=== PATIENT | female | born 1945 | race African-American/Black ===

== ENCOUNTER 2016-10-22 15:46 | Emergency (ER) | payer MEDICARE, MEDICAID ==
[~2016-10-22] VITALS: Ht 165.1 cm; Wt 90.0 kg
[2016-10-22 15:46] VITALS: BP 130/76; PULSE 86; RESP 20; TEMP 97.5; O2SAT 96
[~2016-10-22 15:46] MED LIST: 1-ME1LIQ PO; ALDA2525 PO; ATOR20TA PO; HYDR-2768 PO; LISI-593 PO; LISI40TA PO; SPIR25TA PO; VITATAB25 PO
--- NOTE | 2016-10-22 16:06 | PD ---
HPI Chief Complaint: Complaint Time Seen by Provider: 16:04 Travel History International Travel<30 days: No Contact w/Intl Traveler<30days: No Traveled to known affect area: No History of Present Illness HPI 71-year-old female with PMH of DM, HTN presents to the ED for evaluation of 1 month history of pressure in the vagina. Patient states that she feels as if her "insides are falling out." She denies fever, chills, abdominal pain, nausea , vomiting, dysuria, vaginal discharge, vaginal odor. States she is otherwise been feeling well. Endorses compliance with her daily medications. NKDA. PFSH Past Medical History Cardiovascular Problems: Yes (HIGH BP) Congestive Heart Failure: Yes Diminished Hearing: No Hypertension: Yes ?: Not Past Surgical History Genitourinary Surgery: Yes (EXPLORATORY) Social History Alcohol Use: No Tobacco Use: Yes (3PPD) Substance Use: Yes (CANNABIS) Allergies-Medications (Allergen,Severity, Reaction): Coded Allergies: No Known Allergies (Unverified , 10/22/16) Reported Meds & Prescriptions Reported Meds & Active Scripts Active Reported Spironolactone 25 Mg Tab 25 Mg PO DAILY Hydrochlorothiazide 25 Mg Tab 25 Mg PO DAILY Calcium 600 with Vitamin D (Calcium Carbonate-Cholecalciferol) 600-400 mg-Unit Tab 1 Tab PO DAILY Atorvastatin (Atorvastatin Calcium) 20 Mg Tab 20 Mg PO HS Lisinopril 40 Mg Tab 40 Mg PO DAILY Review of Systems Except as stated in HPI: all other systems reviewed are Neg Physical Exam Narrative GENERAL: Well-nourished, well-developed nontoxic-appearing elderly black female in no acute distress. SKIN: Warm and dry. HEAD: Normocephalic. EYES: No scleral icterus. No injection or drainage. NECK: Supple, trachea midline. No JVD or lymphadenopathy. CARDIOVASCULAR: Regular rate and rhythm without murmurs, gallops, or rubs. RESPIRATORY: Breath sounds clear and equal bilaterally. No accessory muscle use. GASTROINTESTINAL: Abdomen soft, non-tender, nondistended. No suprapubic tenderness. Active bowel sounds. GENITOURINARY: Normal external genitalia without lesions or erythema. Vaginal vault without blood. There is a scant amount of thin white drainage in the vaginal vault. The cervical os is approximately 2 cm from the vaginal introitus. Digital exam reveals atrophied uterus approximately 4-5 cm.Cervical os was closed without drainage. MUSCULOSKELETAL: No cyanosis, or edema. The patient is ambulatory and moves extremities spontaneously. BACK: Nontender without obvious deformity. No CVA tenderness. Data Data Last Documented VS Vital Signs Date Time Temp Pulse Resp B/P Pulse Ox O2 Delivery O2 Flow Rate FiO2 10/22/16 16:08 16 10/22/16 16:08 16 122/66 100 Room Air 10/22/16 15:46 97.5 Orders Gc And Chlamydia Pcr (10/22/16 16:18) Wet Prep Profile (10/22/16 16:18) Urinalysis - C+S If Indicated (10/22/16 16:18) Labs Laboratory Tests Test 10/22/16 10/22/16 16:15 16:20 Clue Cells (Wet Prep) NONE SEEN Vaginal Trichomonas (Wet Prep) NONE SEEN Vaginal Yeast (Wet Prep) NONE SEEN Urine Color YELLOW Urine Turbidity CLEAR Urine pH 5.5 Urine Specific [place] 1.016 Urine Protein TRACE mg/dL Urine Glucose (UA) NEG mg/dL Urine Ketones NEG mg/dL Urine Occult Blood NEG Urine Nitrite NEG Urine Bilirubin NEG Urine Urobilinogen LESS THAN 2.0 MG/DL Urine Leukocyte Esterase SMALL Urine RBC 1 /hpf Urine WBC 2 /hpf Urine Squamous Epithelial 3 /hpf Cells Urine Bacteria RARE /hpf Urine Hyaline Casts 6 /lpf Urine Mucus FEW /lpf Microscopic Urinalysis Comment CULT NOT INDICATED MDM Medical Decision Making Medical Screen Exam Complete: Yes Emergency Medical Condition: Yes Differential Diagnosis Uterine prolapse versus cystocele versus vaginal foreign body versus other Narrative Course 71-year-old female with PMH of DM, HTN presents to the ED for evaluation of 1 month history of pressure in the vagina. Patient states that she feels as if her "insides are falling out." She denies fever, chills, abdominal pain, nausea , vomiting, dysuria, vaginal discharge, vaginal odor. Vitals reviewed. Physical exam reveals a nontoxic appearing black female no acute distress. Abdominal exam is benign. Pelvic exam reveals prolapsed uterus. The cervical os is proximal by 2 cm into the vaginal introitus. The uterus is atrophied, ~5 cm. There is a small amount of thin white discharge in the vaginal vault. UA: No culture indicated Wet prep: Negative GC chlamydia: Pending Patient is low risk for GC and chlamydia. I'll defer empiric treatment pending lab results. I discussed uterine prolapse with the patient. I informed her that this is not an emergency condition and she can follow up with her primary care provider or colorectal surgeon. She indicated understanding of instructions. She is amenable to plan of care. She is stable and discharged home. 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 Follow-up with the colorectal surgeon as discussed. Return to the ED for any urgent or emergent medical condition. Disposition: 01 DISCHARGE HOME Condition: Stable Fani Boswell Oct 22, 2016 16:06
[2016-10-22] MEDS ORDERED: LISI40TA PO (16:07)
[2016-10-22] MEDS ORDERED: ATOR20TA15 PO (16:07)
[2016-10-22] MEDS ORDERED: CALC1TAB87 PO (16:07)
[2016-10-22 16:08] VITALS: BP 122/66; PULSE 78; RESP 16; O2SAT 100
[2016-10-22] MEDS ORDERED: SPIR25TA PO (16:08)
[2016-10-22] MEDS ORDERED: HYDR25TA5 PO (16:08)
[2016-10-22 17:26] LABS: BACTERIA, URINE RARE /hpf; BLOOD, URINE NEG (NEG); COMMENT (UR) CULT NOT INDICATED; CULTURE IF INDICATED CULT NOT INDICATED; GLUCOSE,URINE NEG (NEG); HYALINE CAST, URINE 6 /lpf (RARE); KETONE, URINE NEG (NEG); MUCUS URINE FEW /lpf (OCC); NITRITE,URINE NEG (NEG); PH, URINE 5.5 (5.0-8.5); SQUAMOUS EPITHELIAL CELL URINE 3 /hpf (0-5); URINE COLOR YELLOW (YELLW/STRAW)
[2016-10-22 22:49] LABS: CHLAMYDIA PCR NOT DETECTED (NOT DETECT); NEISSERIA PCR NOT DETECTED (NOT DETECT)
== END 2016-10-22 17:51 | disposition home or self-care (01) ==
LOC: NEPA 15:46
DX: N81.4 Uterovaginal prolapse, unspecified (principal); I10 Essential (primary) hypertension; E11.9 Type 2 diabetes mellitus without complications; F17.210 Nicotine dependence, cigarettes, uncomplicated; F12.10 Cannabis abuse, uncomplicated
CPT/HCPCS: 81001; 87210; 87491; 87591; 99283

== ENCOUNTER 2016-12-30 18:54 | Emergency (ER) | payer MEDICARE, MEDICAID ==
[~2016-12-30] VITALS: Ht 165.1 cm; Wt 80.0 kg
[~2016-12-30 18:54] MED LIST changes: -1-ME1LIQ PO; -ALDA2525 PO; -ATOR20TA PO; +ATOR20TA15 PO; +CALC1TAB87 PO; -HYDR-2768 PO; +HYDR25TA5 PO; -LISI-593 PO; -VITATAB25 PO
[2016-12-30 19:31] VITALS: BP 108/57; PULSE 79; RESP 17; TEMP 98.7; O2SAT 96
[2016-12-30 21:51] LABS: BLOOD, URINE NEG (NEG); COMMENT (UR) CULT NOT INDICATED; CULTURE IF INDICATED CULT NOT INDICATED; GLUCOSE,URINE NEG (NEG); HYALINE CAST, URINE 9 /lpf (RARE); KETONE, URINE NEG (NEG); MUCUS URINE FEW /lpf (OCC); NITRITE,URINE NEG (NEG); PH, URINE 5.5 (5.0-8.5); SQUAMOUS EPITHELIAL CELL URINE 3 /hpf (0-5); URINE COLOR YELLOW (YELLW/STRAW)
[2016-12-30 22:03] LABS: AMPHETAMINE, URINE NEG (NEG); BARBITURATES, URINE NEG (NEG); COCAINE, URINE NEG (NEG)
[2016-12-30 22:13] VITALS: BP 116/65; PULSE 73; RESP 16; O2SAT 99
--- NOTE | 2016-12-30 23:04 | PD ---
HPI Chief Complaint: Dizziness Time Seen by Provider: 22:17 Travel History International Travel<30 days: No Contact w/Intl Traveler<30days: No Traveled to known affect area: No History of Present Illness HPI 71 yo old female arrives by EMS. She smoked marijuana tonight. She states "I got too high." EMS was activated. On scene her vital signs were normal. She reports a near syncope episode however denies loss of consciousness. She has no chest pain or shortness of breath. She denies drugs otherwise. She reports additionally she has had uterine prolapse for the past month. Her primary care provider knows about the uterine prolapse. The patient has follow-up with gynecology scheduled. At time of interview in the ER the patient states she has no complaint. [facility] Past Medical History Cardiovascular Problems: Yes (HIGH BP) Congestive Heart Failure: Yes Diminished Hearing: No Hypertension: Yes Past Surgical History Genitourinary Surgery: Yes (EXPLORATORY) Social History Alcohol Use: No Tobacco Use: Yes (1/3PPD) Substance Use: Yes (CANNABIS) Allergies-Medications (Allergen,Severity, Reaction): Coded Allergies: No Known Allergies (Unverified , 12/30/16) Reported Meds & Prescriptions Reported Meds & Active Scripts Active Reported Spironolactone 25 Mg Tab 25 Mg PO DAILY Hydrochlorothiazide 25 Mg Tab 25 Mg PO DAILY Calcium 600 with Vitamin D (Calcium Carbonate-Cholecalciferol) 600-400 mg-Unit Tab 1 Tab PO DAILY Atorvastatin (Atorvastatin Calcium) 20 Mg Tab 20 Mg PO HS Lisinopril 40 Mg Tab 40 Mg PO DAILY Review of Systems Except as stated in HPI: all other systems reviewed are Neg General / Constitutional: No: Fever Psychiatric: Positive: Substance Abuse Physical Exam Narrative GENERAL: 71-year-old female pleasant no acute distress SKIN: Focused skin assessment warm/dry. HEAD: Atraumatic. Normocephalic. EYES: Pupils equal and round. No scleral icterus. No injection or drainage. ENT: No nasal bleeding or discharge. Mucous membranes pink and moist. NECK: Trachea midline. No JVD. CARDIOVASCULAR: Regular rate and rhythm. No murmur appreciated. RESPIRATORY: No accessory muscle use. Clear to auscultation. Breath sounds equal bilaterally. GASTROINTESTINAL: Abdomen soft, non-tender, nondistended. Hepatic and splenic margins not palpable. MUSCULOSKELETAL: No obvious deformities. No clubbing. No cyanosis. No edema. NEUROLOGICAL: Awake and alert. No obvious cranial nerve deficits. Motor grossly within normal limits. Normal speech. PSYCHIATRIC: Appropriate mood and affect; insight and judgment normal. Data Data Last Documented VS Vital Signs Date Time Temp Pulse Resp B/P Pulse Ox O2 Delivery O2 Flow Rate FiO2 12/30/16 22:13 73 16 116/65 99 12/30/16 19:31 98.7 Orders Urinalysis - C+S If Indicated (12/30/16 21:33) Drug Screen, Random Urine (12/30/16 21:33) Labs Laboratory Tests Test 12/30/16 21:35 Urine Color YELLOW Urine Turbidity CLEAR Urine pH 5.5 Urine Specific [place] 1.013 Urine Protein NEG mg/dL Urine Glucose (UA) NEG mg/dL Urine Ketones NEG mg/dL Urine Occult Blood NEG Urine Nitrite NEG Urine Bilirubin NEG Urine Urobilinogen LESS THAN 2.0 MG/DL Urine Leukocyte Esterase SMALL Urine RBC 1 /hpf Urine WBC 3 /hpf Urine Squamous Epithelial 3 /hpf Cells Urine Hyaline Casts 9 /lpf Urine Mucus FEW /lpf Microscopic Urinalysis Comment CULT NOT INDICATED Urine Opiates Screen NEG Urine Barbiturates Screen NEG Urine Amphetamines Screen NEG Urine Benzodiazepines Screen NEG Urine Cocaine Screen NEG Urine Cannabinoids Screen POS MDM Medical Decision Making Medical Screen Exam Complete: Yes Emergency Medical Condition: Yes Medical Record Reviewed: Yes Differential Diagnosis Marijuana abuse, marijuana side effect, anxiety, uterine prolapse Narrative Course Urinalysis: No UTI Urine toxicology marijuana At 2245 the patient's resting comfortably. She's ready for discharge. F/u with PMD and calibration engineer discussed. 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 Hopefully, we have met your expectations on today's visit. You are welcome to return to [facility] at any time, as we are committed to meeting the health care needs of our community. Med/Other Pt SpecificInfo: No Change to Meds Disposition: 01 DISCHARGE HOME Condition: Stable Rafi Hutchison MD Dec 30, 2016 23:04
== END 2016-12-30 23:41 | disposition home or self-care (01) ==
LOC: NEDAMB 18:54 → NEPC 23:41
DX: N81.4 Uterovaginal prolapse, unspecified (principal); F12.90 Cannabis use, unspecified, uncomplicated; R55 Syncope and collapse; I10 Essential (primary) hypertension; I50.9 Heart failure, unspecified; F17.210 Nicotine dependence, cigarettes, uncomplicated
CPT/HCPCS: 80307; 81001; 99284